=== PATIENT | male | born 1935 | race Hispanic/Latino ===

== ENCOUNTER 2017-12-26 08:14 | Day surgery (SDC) | payer OTHER ==
[~2017-12-26] VITALS: Ht 167.6 cm; Wt 82.4 kg
[~2017-12-26 08:14] MED LIST: DONE5TAB33 PO; LOSA50TA37 PO; MELO-106 PO; SERT50TA12 PO; SODIUM CHLORIDE 0.9% 1000ML 1,000 ML IV ONE
[2017-12-26 08:20] VITALS: BP 144/67
[2017-12-26] MEDS ORDERED: PROPOFOL 10 MG/ML 20ML VIAL IV ONE ×2 (10:43→10:57)
[2017-12-26 11:10] VITALS: BP 92/43
== END 2017-12-26 11:30 ==
LOC: ENDO 08:14 → DAH 08:14 → ENDO 11:30
PROVIDERS: ATTEND Internal Medicine Gastroenterology
DX: K59.01 Slow transit constipation (principal); K56.2 Volvulus; K21.9 Gastro-esophageal reflux disease without esophagitis; K62.4 Stenosis of anus and rectum; Z88.8 Allergy status to other drugs, medicaments and biological substances; Z68.35 Body mass index [BMI] 35.0-35.9, adult; I10 Essential (primary) hypertension; M19.90 Unspecified osteoarthritis, unspecified site; Z79.899 Other long term (current) drug therapy
CPT/HCPCS: 43235; 45378; 93005; J2704 ×2; J7030